=== PATIENT | male | born 1960 | race Caucasian/White ===

== ENCOUNTER → 2020-06-05 00:41 | Outpatient (CLI) | payer BC, SELFPAY ==
[2020-06-05 20:46] LABS: SARS-CoV-2 RNA PCR Negative
== END ==
PROVIDERS: PCP Internal Medicine; Visit Provider Internal Medicine Gastroenterology
DX: Z01.812 Encounter for preprocedural laboratory examination (principal); Z20.822 Contact with and (suspected) exposure to COVID-19
CPT/HCPCS: C9803; U0003; U0005

== ENCOUNTER 2020-06-08 00:42 | Day surgery (SDC) | payer BC, SELFPAY ==
[2020-05-28 10:01] VITALS: BMI 29.2
[2020-06-08 06:13] VITALS: BP 127/84; PULSE 93; RESP 18; TEMP 36.2; O2SAT 98
[2020-06-08] MEDS: LACTATED RINGERS 1,000 ML 150 ML IV CONT (06:17)
--- NOTE | 2020-06-08 06:41 | PM.HPGS ---
History of Present Illness History of Present Illness Consent: Risks, benefits, and alternatives have been discussed and questions answered. Patient agrees to proceed with procedure. Chief complaint: Neoplasm Screening Narrative: Reji Palumbo is a 59 year old male Referred for colon cancer screening. His father had precancerous polyps. Review of Systems Review of Systems: All systems reviewed & are unremarkable except as noted in HPI and below PMFSH Past Medical History Medical History Benign essential hypertension BMI 29.0-29.9,adult BMI 31.0-31.9,adult BPH (benign prostatic hyperplasia) Colon cancer screening DJD (degenerative joint disease), multiple sites Encounter for routine adult health examination without abnormal findings Encounter for special screening examination for neoplasm of prostate Hyperlipidemia Hypothyroidism (acquired) On custodial drug therapy Vitamin D deficiency Family History Family History Father Cerebrovascular accident Hypertension Mother Diabetes mellitus Family history of diabetes mellitus in first degree relative Sibling Hypertension Grandparent Cerebrovascular accident Social History Social History Smoking status: Never smoker Second hand tobacco smoke exposure: No Alcohol intake: current Substance use: never Substance use type: does not use Spiritual care concerns: No Meds Home Medications and Allergies Home Medications Medication Instructions Recorded Confirmed Type cholecalciferol (vitamin D3) 25 1,000 unit PO DAILY 01/03/19 06/08/20 History mcg (1,000 unit) capsule amlodipine 10 mg PO DAILY 05/28/20 06/08/20 History ascorbic acid (vitamin C) 500 mg PO BID 05/28/20 06/08/20 History cyanocobalamin (vitamin B-12) 2,000 mcg PO DAILY 05/28/20 06/08/20 History [Vitamin B-12] dextromethorphan-guaifenesin 1 tablet PO BID PRN 05/28/20 06/08/20 History [Mucinex DM] glucosamine-chondroitin 2 cap PO DAILY 05/28/20 06/08/20 History methylcellulose (laxative) 1,000 mg PO DAILY 05/28/20 06/08/20 History [Citrucel] naproxen sodium [Aleve] 220 mg PO BID PRN 05/28/20 06/08/20 History niacin 500 mg PO BID 05/28/20 06/08/20 History omega-3 fatty acids [[place] 3 Fish 2 cap PO DAILY 05/28/20 06/08/20 History Oil] rosuvastatin 5 mg PO DAILY 05/28/20 06/08/20 History dutasteride 0.5 mg PO DAILY 06/08/20 History levothyroxine 125 mcg PO DAILY 06/08/20 History perindopril erbumine 4 mg PO DAILY 06/08/20 History Allergies Allergy/AdvReac Type Severity Reaction Status Date / Time No Known Allergies Allergy Verified 06/08/20 06:11 Vital Signs Vital Signs - 24 hr 06/08/20 06:13 Temperature 36.2 C L Pulse Rate 93 Respiratory Rate 18 Blood Pressure 127/84 Pulse Oximetry 98 Exam Const: General: alert Orientation/consciousness: patient oriented x3 Resp: Auscultation: clear to auscultation bilaterally Cardio: Rhythm: regular rhythm GI: GI Palp: Yes Soft to palpation and No Tenderness to palpation present (GI) Neuro: General: patient oriented x3 Assessment and Plan Assessment and plan (1) Colon cancer screening: Code(s): Z12.11 - Encounter for screening for malignant neoplasm of colon Status: Acute Assessment and Plan: Colonoscopy with possible biopsy or polypectomy or cautery or injection of substances.
--- NOTE | 2020-06-08 07:12 | WPDANESEPPF ---
Anes - Initial Pre Proc Eval Procedure: Operation Date: 06/08/20 07:30 Proposed Procedures p Screening Colonoscopy - Daniel Atkins MD Date/Time: 06/08/20 07:12 Surgeon: Daniel Atkins MD Pre Op Diagnosis: Neoplasm Screening Patient Data Age: 59 Gender: M Height: 6 ft 4 in Weight: 103.3 kg Last Vital Signs Temp 97.1 F L 06/08/20 06:13 Pulse 93 06/08/20 06:13 Resp 18 06/08/20 06:13 BP 127/84 06/08/20 06:13 Pulse Ox 98 06/08/20 06:13 Allergies Allergy/AdvReac Type Severity Reaction Status Date / Time No Known Allergies Allergy Verified 06/08/20 06:11 Home Medications Medication Instructions Recorded Confirmed Type cholecalciferol (vitamin D3) 25 1,000 unit PO DAILY 01/03/19 06/08/20 History mcg (1,000 unit) capsule amlodipine 10 mg PO DAILY 05/28/20 06/08/20 History ascorbic acid (vitamin C) 500 mg PO BID 05/28/20 06/08/20 History cyanocobalamin (vitamin B-12) 2,000 mcg PO DAILY 05/28/20 06/08/20 History [Vitamin B-12] dextromethorphan-guaifenesin 1 tablet PO BID PRN 05/28/20 06/08/20 History [Mucinex DM] glucosamine-chondroitin 2 cap PO DAILY 05/28/20 06/08/20 History methylcellulose (laxative) 1,000 mg PO DAILY 05/28/20 06/08/20 History [Citrucel] naproxen sodium [Aleve] 220 mg PO BID PRN 05/28/20 06/08/20 History niacin 500 mg PO BID 05/28/20 06/08/20 History omega-3 fatty acids [[place] 3 Fish 2 cap PO DAILY 05/28/20 06/08/20 History Oil] rosuvastatin 5 mg PO DAILY 05/28/20 06/08/20 History dutasteride 0.5 mg PO DAILY 06/08/20 History levothyroxine 125 mcg PO DAILY 06/08/20 History perindopril erbumine 4 mg PO DAILY 06/08/20 History Patient hx anesthesia problems: none Family hx anesthesia problems: none PMFSH Past Medical History Medical History Benign essential hypertension BMI 29.0-29.9,adult BMI 31.0-31.9,adult BPH (benign prostatic hyperplasia) Colon cancer screening DJD (degenerative joint disease), multiple sites Encounter for routine adult health examination without abnormal findings Encounter for special screening examination for neoplasm of prostate Hyperlipidemia Hypothyroidism (acquired) On termite renewal inspector drug therapy Vitamin D deficiency Family History Family History Father Cerebrovascular accident Hypertension Mother Diabetes mellitus Family history of diabetes mellitus in first degree relative Sibling Hypertension Grandparent Cerebrovascular accident Social History Social History Smoking status: Never smoker Second hand tobacco smoke exposure: No Alcohol intake: current Substance use: never Substance use type: does not use Spiritual care concerns: No Anes - Eval Final PreProcedure Day of Procedure 06/08/20 07:12 Patient weight: overweight Heart: regular rate and rhythm Airway: Mallampati scale class II Neurological: alert and oriented Last oral intake: >/= 8 hours ASA classification: II Emergent: no Anesthetic plan: proceed Anesthesia type and monitoring: general GIVS and standard monitoring Informed Consent: The patient's anesthetic plan and its attendant risks and benefits were discussed with the patient/family/POA. Questions were solicited and answers provided to the satisfaction of the patient/family/POA.
[2020-06-08] MEDS: SIMETHICONE ORAL SUSPENSION 20 MG/0.3 ML 30 ML BOTTLE 0.6 ML IRRIGATION (07:33)
[2020-06-08 07:37] VITALS: BP 108/77; PULSE 65; RESP 18; O2SAT 94
[2020-06-08 07:47] VITALS: BP 101/64; PULSE 62; RESP 18; O2SAT 95
[2020-06-08 07:57] VITALS: BP 97/67; PULSE 68; RESP 19; O2SAT 99
== END 2020-06-08 08:15 | disposition home or self-care (01) ==
PROVIDERS: PCP Internal Medicine; Visit Provider Internal Medicine Gastroenterology
PROC: 0DJD8ZZ Inspection of Lower Intestinal Tract, Via Natural or Artificial Opening Endoscopic (ICD-10-PCS; CPT 45378; principal; 2020-06-08 07:30)
DX: Z12.11 Encounter for screening for malignant neoplasm of colon (principal); Z83.71 Family history of colonic polyps; K57.30 Diverticulosis of large intestine without perforation or abscess without bleeding; N40.0 Benign prostatic hyperplasia without lower urinary tract symptoms; M19.90 Unspecified osteoarthritis, unspecified site; E78.5 Hyperlipidemia, unspecified; E55.9 Vitamin D deficiency, unspecified; E03.9 Hypothyroidism, unspecified; I10 Essential (primary) hypertension
CPT/HCPCS: 45378; J2704; J7120

== ENCOUNTER 2023-03-10 08:08 | Outpatient (CLI) | payer OTHER, SELFPAY ==
--- NOTE | ~2023-03-10 | NM_ITS ---
EXAMINATION: NM marzena stress w perfusion DATE: 03/10/2023 10:31 INDICATION: Abnormal electrocardiogram. TECHNIQUE: Rest images were obtained following intravenous administration of 11 mCi Tc99m tetrofosmin (Myoview). The patient was infused intravenously with Lexiscan (regadenoson). Then, 34.5 mCi Tc99m t etrofosmin (Myoview) was administered intravenously, and stress images were obtained. Data was recons tructed into short axis and horizontal and vertical long axis SPECT images. Gated SPECT images were a lso obtained. COMPARISON: None. FINDINGS: There is no definite reversible or fixed perfusion abnormality to suggest ischemia or infar ction. There is no segmental wall motion abnormality. Left ventricular ejection fraction measures 5 4%. IMPRESSION: 1. No definite ischemia or infarct. 2. Normal left ventricular ejection fraction measuring 54%. Reviewed, dictated and finalized at location A. [facility]
--- NOTE | 2023-03-10 08:40 | EST_ITS ---
Patient Info Name: Reji Palumbo Age: 62 years : 1960 Gender: Male Ht: 76 in Wt: 250 lbs BSA: 2.49 m2 HR: 57 bpm BP: 160 / 96 mmHg Heart Rhythm: Sinus Rhythm Exam Date: 03/10/2023 9:17 AM Exam Location: [facility] Patient Status: Outpatient Admit Date: 03/10/2023 Staff Ordering Physician: Moncho Michelle MD Attending Provider: Moncho Michelle MD Exercise Technologist: Naheed Stevenson CT Exercise Physician: Jhonatan Morton DO Exam Type: CA stress marzena w NM Study Info Indications R94.31 - Abnormal electrocardiogram ECG EKG A regadenoson stress test was performed. Summary 1. 1. Inconclusive lexiscan stress test for ischemic ST changes by ECG criteria due to baseline LBBB. 2. 2. Baseline hypertension. 3. 3. Nuclear scan to follow and will be reported separately. Please correlate with it. 4. 4. Patient informed of the above results. Protocol: Lexiscan Stress ECG Details Stage: REST Duration (min): 4 min : 22 sec HR (bpm): 63 SBP (mmHg): 160 DBP (mmHg): 96 Stage: REST Duration (min): 10 min : 57 sec HR (bpm): 54 SBP (mmHg): 160 DBP (mmHg): 96 Stage: STAGE 1 Duration (min): 0 min : 59 sec HR (bpm): 64 SBP (mmHg): 148 DBP (mmHg): 78 Stage: RECOVERY Duration (min): 1 min : 0 sec HR (bpm): 83 SBP (mmHg): 148 DBP (mmHg): 78 Stage: RECOVERY Duration (min): 2 min : 0 sec HR (bpm): 79 SBP (mmHg): 148 DBP (mmHg): 78 Stage: RECOVERY Duration (min): 3 min : 0 sec HR (bpm): 73 SBP (mmHg): 142 DBP (mmHg): 79 Stage: RECOVERY Duration (min): 3 min : 18 sec HR (bpm): 74 SBP (mmHg): 142 DBP (mmHg): 79 Rest HR: 54 bpm Peak HR: 84 bpm Rest Sys BP: 160 mmHg Peak Sys BP: 148 mmHg Max Pred HR: 157 bpm % Max Pred HR: 54 % Target HR: 133 bpm Max RPP: 12,432 bpm*mmHg Termination Reason: Completed protocol Cardiac Symptoms: Shortness of breath Total Time: 1 min : 0 sec Rest Jimenez BP: 96 mmHg Peak Jimenez BP: 78 mmHg Total Dose: 0.4 mg Resting ECG Sinus bradycardia, first degree AV block, LBBB. Stress ECG No ST changes. Arrhythmias None. Report Signatures
== END 2023-03-10 08:09 | disposition home or self-care (01) ==
LOC: ANHCARD 08:10
PROVIDERS: PCP Internal Medicine; Visit Provider Internal Medicine
DX: I44.7 Left bundle-branch block, unspecified (principal); R94.31 Abnormal electrocardiogram [ECG] [EKG]
CPT/HCPCS: 78452; 93017; A9502; J2785